=== PATIENT | male | born 1970 | race Hispanic/Latino ===

== ENCOUNTER 2024-01-16 14:49 | Emergency (ER) | payer BC ==
[2024-01-16] MEDS ORDERED: Sodium Chloride 0.9% 1,000 ML ONE (14:55)
[2024-01-16] MEDS ORDERED: Aspirin Chewable 81 MG TAB ONE (14:55)
[2024-01-16] MEDS ORDERED: dilTIAZem 125 MG/25 ML SDV ONE (14:58)
[2024-01-16] MEDS ORDERED: dilTIAZem 25 MG/5 ML VIAL ONE (14:58)
[2024-01-16 15:08] LABS: #Basophils 0.1 thou/uL (0.0-0.2); #Eosinphils 0.4 thou/uL (0.0-0.7); #Lymphocytes 2.7 thou/uL (1.20-3.40); #Neutrophils 8.7 thou/uL (1.40-6.50); %Basophils 0.8 % (0.0-1.0); %Eosinophils 3.2 % (0.0-10.0); %Lymphocytes 20.6 % (21.0-51.0); %Monocytes 7.7 % (0.0-10.0); %Neutrophils 67.8 % (42.0-75.0); Hematocrit 43.5 % (42.0-52.0); Hemoglobin 14.5 g/dL (14.0-18.0); Mean Corpuscular HGB CONC 33.4 g/dL (32.0-36.0); Mean Corpuscular Hemoglobin 31.2 pg (27.0-31.0); Mean Corpuscular Volume 93.2 fl (78.0-98.0); Mean Platelet Volume 9.8 fL (7.4-10.4); Platelet Count 170 10x3/uL (130-400); RBC Distribution Width 11.5 % (11.5-14.5); Red Blood Cell (RBC) Count 4.67 mill/uL (4.70-6.10); White Blood Cell (WBC) Count 12.9 10x3/uL (4.8-10.8)
[2024-01-16 15:15] LABS: INR-International Normal Ratio 1.1
[2024-01-16 15:23] LABS: ALT (SGPT) 74 U/L (8-55); AST (SGOT) 57 U/L (5-34); Albumin 4.6 g/dL (3.5-5.0); Alkaline Phosphatase 68 U/L (40-110); Anion Gap 19 mmol/L (10-20); BUN (Urea Nitrogen) 25 mg/dL (8.4-25.7); Bilirubin, Total 2.3 mg/dL (0.2-1.2); Calc. Creatinine Clearance 0 mL/min (70-130); Calcium 9.6 mg/dL (7.8-10.44); Carbon Dioxide 22 mmol/L (22-29); Chloride 105 mmol/L (98-107); Estimated GFR 42; Globulin 2.9 g/dL (2.4-3.5); Glucose 322 mg/dL (70-105); Potassium 4.6 mmol/L (3.5-5.1); Protein, Total 7.5 g/dL (6.0-8.3); Sodium 141 mmol/L (136-145)
[2024-01-16 15:29] LABS: Troponin I Less than 0.010 ng/mL (< 0.028)
== END 2024-01-16 18:37 | disposition short-term general hospital (02) ==
LOC: NAV ERS 14:49
DX: R00.0 Tachycardia, unspecified (principal); R07.9 Chest pain, unspecified; E11.9 Type 2 diabetes mellitus without complications; E78.00 Pure hypercholesterolemia, unspecified; I10 Essential (primary) hypertension; Z79.899 Other long term (current) drug therapy; Z79.84 Long term (current) use of oral hypoglycemic drugs; R94.4 Abnormal results of kidney function studies
CPT/HCPCS: 71045; 80053; 83880; 84443; 84484; 85025; 85610; 85730; 93005; 94760; 96374; J7050